=== PATIENT | male | born 1970 | race Caucasian/White ===

== ENCOUNTER 2022-01-19 10:01 | Outpatient (CLI) | payer BC, SELFPAY ==
[2022-01-19 13:13] LABS: Chloride* 104 mmol/L (96-114)
[2022-01-19 13:14] LABS: Potassium* 4.9 mmol/L (3.6-5.1); Sodium* 138 mmol/L (135-149)
[2022-01-19 13:16] LABS: Cholesterol* 221 mg/dL (90-199); Creatinine* 0.6 mg/dL (0.5-1.5); Estimated Glomerular Filt Rate 116 ml/min
[2022-01-19 13:17] LABS: Blood Urea Nitrogen* 18 mg/dL (7-30); Calcium* 9.8 mg/dL (8.4-10.6); Carbon Dioxide* 25 mmol/L (20-32); Glucose* 126 mg/dL (60-115); Triglycerides* 78 mg/dL (40-149)
[2022-01-19 13:18] LABS: HDL Cholesterol* 50 mg/dL (>=40); LDL Cholesterol Calculated 155 mg/dL (<100)
== END 2022-01-19 10:02 | disposition home or self-care (01) ==
PROVIDERS: PCP Family Medicine; Visit Provider Family Medicine
DX: I10 Essential (primary) hypertension (principal); E78.5 Hyperlipidemia, unspecified; E11.9 Type 2 diabetes mellitus without complications
CPT/HCPCS: 80048; 80061

== ENCOUNTER 2022-11-06 12:27 | Outpatient (CLI) | payer BC, SELFPAY ==
[2022-11-06 14:18] LABS: Chloride* 103 mmol/L (96-114)
[2022-11-06 14:19] LABS: Potassium* 4.4 mmol/L (3.6-5.1); Sodium* 136 mmol/L (135-149)
[2022-11-06 14:21] LABS: Creatinine* 0.7 mg/dL (0.5-1.5); Estimated Glomerular Filt Rate 111 ml/min
[2022-11-06 14:22] LABS: Blood Urea Nitrogen* 20 mg/dL (7-30); Calcium* 9.7 mg/dL (8.4-10.6); Carbon Dioxide* 26 mmol/L (20-32); Glucose* 145 mg/dL (60-115)
[2022-11-06 14:49] LABS: PSA Screen* 0.74 ng/mL (0.10-4.00)
== END 2022-11-06 12:28 | disposition home or self-care (01) ==
PROVIDERS: PCP Family Medicine; Visit Provider Family Medicine
DX: Z12.5 Encounter for screening for malignant neoplasm of prostate (principal); I10 Essential (primary) hypertension
CPT/HCPCS: 80048; 84153

== ENCOUNTER 2024-05-07 10:24 | Outpatient (CLI) | payer BC, SELFPAY | END 2024-05-07 10:25 | disposition home or self-care (01) | PROVIDERS: PCP Family Medicine; Visit Provider Family Medicine | DX: E78.2 Mixed hyperlipidemia (principal); I10 Essential (primary) hypertension; Z12.5 Encounter for screening for malignant neoplasm of prostate | CPT/HCPCS: 80048; 80061; G0103 ==